=== PATIENT | female | born 1975 | race Caucasian/White ===

== ENCOUNTER 2024-09-13 23:39 | Emergency (ER) | payer MEDICARE, SELFPAY ==
[2024-09-13 23:42] VITALS: TEMP 36.7; BMI 38.9
[2024-09-14 00:02] VITALS: BP 176/111; PULSE 100; RESP 16; O2SAT 100
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
[2024-09-14 00:19] VITALS: BP 162/106
[2024-09-14] MEDS: lisinopril 10 mg Tablet PO (00:19)
[2024-09-14] MEDS: promethazine 25 mg/mL SDV 1 mL IM (00:19)
[2024-09-14] MEDS: cloNIDine 0.1 mg Tablet PO (00:19)
[2024-09-14] MEDS: ketorolac 60 mg/2 mL INJ IM (00:19)
[2024-09-14 00:23] VITALS: BP 162/106; PULSE 96; RESP 16; O2SAT 95
[2024-09-14 01:13] VITALS: BP 172/93; PULSE 92; RESP 16; O2SAT 94
== END 2024-09-14 01:14 | disposition home or self-care (01) ==
PROVIDERS: Emergency Provider Emergency Medicine; PCP Internal Medicine
DX: R51.9 Headache, unspecified (principal); I10 Essential (primary) hypertension
CPT/HCPCS: 96372; 99284; J1885; J2550; J9999